=== PATIENT | female | born 1970 | race African-American/Black ===

== ENCOUNTER → 2020-08-01 08:57 | Outpatient (BNVA) | payer SELFPAY | PROVIDERS: PCP Nurse Practitioner Community Health; Visit Provider Nurse Practitioner ==

== ENCOUNTER 2020-08-22 13:50 | Outpatient (REF) | payer OTHER, SELFPAY ==
[2020-08-22 14:18] LABS: MANUAL DIFF FLAG NO
[2020-08-22 14:28] LABS: Basophils Percent Auto 0.6 % (0-2); Eosinophils Absolute Auto 0.3 X10*3/uL (0.0-0.4); Eosinophils Percent Auto 5.2 % (0-4); Hematocrit 37.1 % (37-47); Hemoglobin 12.2 g/dl (12.0-16.0); Imm Gran Abs Auto 0.02 X10*3/uL (0.00-0.03); Imm Gran Pct Auto 0.4 % (0.0-0.4); Lymphocytes Absolute Auto 1.6 X10*3/uL (1.2-4.9); Lymphocytes Percent Auto 33.8 % (20-40); Mean Corpuscular HGB Conc 32.9 g/dl (31.0-35.0); Mean Corpuscular Hemoglobin 29.6 pg (27.0-33.0); Mean Platelet Volume 10.1 fL (9.4-12.3); Monocytes Absolute Auto 0.6 X10*3/uL (0.1-1.2); Monocytes Percent Auto 12.4 % (2-11); Neutrophils Absolute Auto 2.3 X10*3/uL (2.0-8.3); Neutrophils Percent Auto 47.6 % (45-73); Platelet Count 298 X10*3/uL (160-400); Red Blood Count 4.12 X10*6/uL (4.20-5.50); Red Cell Distribution Width 13.8 % (11.0-16.0); White Blood Count 4.8 X10*3/uL (4.8-10.8)
[2020-08-22 14:46] LABS: Alanine Aminotransferase 7 U/L (0-31); Albumin Level 4.3 g/dL (3.5-5.0); Alkaline Phosphatase 74 U/L (39-117); Anion Gap 11 (12-20); Aspartate Amino Transferase 19 U/L (5-31); Bilirubin Total 0.4 mg/dL (0.0-1.0); Blood Urea Nitrogen 7 mg/dL (9-16); Calcium 9.2 mg/dL (8.4-10.2); Carbon Dioxide 27 mmol/L (22-29); Chloride 106 mmol/L (96-108); Estimated Glomerular Filt Rate > 60; Glucose Random 97 mg/dL (60-115); Potassium 4.2 mmol/L (3.3-5.1); Sodium 140 mmol/L (135-145); Total Protein 7.2 g/dL (6.5-8.0)
== END 2020-08-22 13:51 | disposition home or self-care (01) ==
LOC: HO.LAB 13:50
PROVIDERS: PCP Nurse Practitioner Community Health; Visit Provider Nurse Practitioner
DX: Z83.71 Family history of colonic polyps (principal)
CPT/HCPCS: 36415; 80053; 85025

== ENCOUNTER → 2020-09-11 09:05 | Outpatient (BNVA) | payer OTHER, SELFPAY | PROVIDERS: PCP Nurse Practitioner Community Health; Visit Provider Advanced Practice Midwife ==

== ENCOUNTER 2020-09-30 10:03 | Outpatient (REF) | payer OTHER, SELFPAY | END 2020-09-30 10:04 | disposition home or self-care (01) | LOC: HO.LAB 10:03 | PROVIDERS: PCP Nurse Practitioner Community Health; Visit Provider Advanced Practice Midwife | DX: N84.1 Polyp of cervix uteri (principal); L68.0 Hirsutism; L70.9 Acne, unspecified | CPT/HCPCS: 57500; 58558; 81025; 88305 ==

== ENCOUNTER 2020-10-20 10:02 | Day surgery (SDC) | payer OTHER, SELFPAY ==
--- NOTE | 2020-10-20 11:00 | MHC.SHP ---
Pre-Procedural Eval Section A Date of Service: 10/20/20 Section B Chief Complaint: fhx of colonic polyps Relevant Family History (Specify if Yes): Yes Relevant Social History: None Present Medications: see Short Stay Collaborative assessment Medical History: Significant History (Anemia Frequent headaches GERD (gastroesophageal reflux disease) History of positive PPD HTN (hypertension) Overactive bladder) History of Previous Operations: Relevant previous surgery/procedure and date(s) (Hx of colonoscopy) Allergies: Allergies Allergy/AdvReac Type Severity Reaction Status Date / Time Sulfa (Sulfonamide Allergy Unknown RASH, hives Verified 10/14/20 10:18 Antibiotics) [SULFA (SULFONAMIDE ANTIBIOTICS)] Review of Systems Sugical H&P ROS: Negative: Constitution, Cardiovascular, Respiratory, Neurological, Psychiatric, Hem-Onc, Allergic/Immunologic, Gastrointestinal, Genitourinary, Musculoskeletal, Integumentary, Endocrine and Eyes/Ears/Nose/Throat Exam Surgical H&P Exam: Normal: HEENT, Normal: Heart, Normal: Lungs, Normal: Extremities, Normal: Abdomen, Normal: Skin and Normal: Neurological Plan Diagnosis/Plan: Unchanged I have reviewed the history and physical and performed a pertinent physical examination on my patient. No changes have occurred unless specified.
[2020-10-20 11:07] LABS: UPreg QC Valid YES; Urine Pregnancy NEGATIVE (NEGATIVE)
--- NOTE | 2020-10-20 11:07 | P.CONAN_ITS ---
REPLACED BY [facility] Active Problems Active Problems: All Active Problems (Updated 10/14/20 @ 10:34 by Nayana oakes) GERD (gastroesophageal reflux disease) (Acute) Constipation (Acute) Abdominal bloating (Acute) Family history of polyps in the colon (Acute) Solitary rectal ulcer (Acute) Encounter for annual routine gynecological examination (Acute) Cervical polyp (Acute) Hirsutism (Acute) Acne (Acute) Past Medical History Medical History Anemia Frequent headaches GERD (gastroesophageal reflux disease) History of positive PPD HTN (hypertension) Overactive bladder Family History Family History Family/Other No significant family history Surgical History Surgical History Hx of colonoscopy Social History Social History Alcohol intake: current Alcohol intake frequency: holidays/special occasions only Advance Directives: No Advance Directives Information Provided: Yes Gender identity: female Meds Allergies Allergy/AdvReac Type Severity Reaction Status Date / Time Sulfa (Sulfonamide Allergy Unknown RASH, hives Verified 10/14/20 10:18 Antibiotics) [SULFA (SULFONAMIDE ANTIBIOTICS)] Home Medications Medication Instructions Recorded Confirmed Last Taken Type amlodipine 2.5 mg tablet 2.5 mg PO DAILY 08/01/20 10/14/20 Unknown History lisinopril 40 mg tablet 40 mg PO DAILY 08/01/20 09/11/20 Unknown History oxybutynin chloride 5 mg tablet 5 mg PO BID 08/01/20 10/14/20 Unknown History propranolol 160 mg capsule,24 160 mg PO DAILY 08/01/20 10/20/20 10/20/20 09:00 History hr,extended release Exam Exam Date and Time: October 20, 2020 1107 Airway Mallampati Class: III TM Dist: >3cm Neck ROM: Full
[2020-10-20 11:08] VITALS: BP 150/86; PULSE 82; RESP 16; TEMP 36.3; O2SAT 99; BMI 35.9
[2020-10-20] MEDS: Lactated Ringers 1,000 ML 100 ML IVCONT (11:16)
--- NOTE | 2020-10-20 12:05 | P.BOP_ITS ---
Brief Operative Note Date of Service: 10/20/20 Pre-op diagnosis: FH of polyps Post-op diagnosis: same Procedure: see op note Surgeon: Henry Edwards MD Anesthesia: MAC Was an [employer] Presser used for this Procedure?: No Estimated blood loss (mL): 0 Condition: stable Disposition: PACU
--- NOTE | 2020-10-20 12:05 | W.PM.OPN ---
Operative Note Operative Note Date of Service: 10/20/20 Narrative: Operative Information Procedure Description: Colonoscopy COLONOSCOPY Instrument: Olympus variable stiffness pediatric scope 190L Colonoscopy Monitoring: Vital signs and clinical assessment, continuous EKG monitoring, Pulse oximetry, Carbon Dioxide monitoring and blood pressure monitoring were done throughout the procedure. Colon withdrawal time was 20 minutes. Procedure: The patient was placed in the left lateral decubitis position and pre-procedure medications were administered. After a digital rectal examination of the ano-rectum, the video colonoscope was inserted into the rectum and advanced through the colon to the cecum/TI. The colonoscope was slowly withdrawn in a retrograde panoramic fashion and the colon mucosa was carefully examined including a retroflexed view of the rectum. Findings and interventions are described below. Procedure Difficulty:moderate, pressure applied to get to cecum Findings: Terminal Ileum-normal Cecum:normal Ascending Colon: normal Transverse Colon -normal Descending Colon:normal Sigmoid Colon: x2 sessile polyps 9-10 mm removed with cold snare, x 2 diminutive polyps 3-5 mm removed with forceps Rectum: Retroflexion with small internal hemorrhoids, grade I. Distal rectum with inflammed mass like area with slough and edema, This was biopsied and felt soft, adjacent to this was a red polypoid area 8-9 mm removed with cold snare. Anorectum - normal Colon preparation: [facility] [place] Bowel Preparation Scale Right colon; 2 Transverse colon: 2 Left colon; 2 (0 = Unprepared colon segment with mucosa not seen due to solid stool that cannot be cleared. 1 = Portion of mucosa of the colon segment seen, but other areas of the colon segment not well seen due to staining, residual stool and/or opaque liquid. 2 = Minor amount of residual staining, small fragments of stool and/or opaque liquid, but mucosa of colon segment seen well. 3 = Entire mucosa of colon segment seen well with no residual staining, small fragments of stool or opaque liquid) Impression and Post Procedure Diagnosis: polyps internal hemorrhoids mass like lesion distal rectum could be due to rectal prolapse (she has hx of solitary rectal ulcer on past colonoscopy) Plan: High fiber diet leaflet Avoid straining at stool, epsom salts and sitz bath, anusol supps or cream prn Repeat Colonoscopy in 3 years if adenomatous polyps, 5 yrs if hyperplastic due to FH of polyps or earlier if clinically indicated Above findings were reviewed with the patient and relevant handouts were provided if indicated.
[2020-10-20 12:11] VITALS: BP 125/70; PULSE 82; RESP 16; TEMP 36.2; O2SAT 98
[2020-10-20 12:34] VITALS: BP 155/91; PULSE 61; RESP 16; TEMP 36.2; O2SAT 100
== END 2020-10-20 12:50 | disposition home or self-care (01) ==
PROVIDERS: Anesthesiology; PCP Nurse Practitioner Community Health; Visit Provider Internal Medicine Gastroenterology
PROC: 0DJD8ZZ Inspection of Lower Intestinal Tract, Via Natural or Artificial Opening Endoscopic (ICD-10-PCS; CPT 45378; principal; 2020-10-20 11:40)
DX: Z12.11 Encounter for screening for malignant neoplasm of colon (principal); Z83.71 Family history of colonic polyps; K63.5 Polyp of colon; K62.1 Rectal polyp; K62.6 Ulcer of anus and rectum; K64.0 First degree hemorrhoids; K21.9 Gastro-esophageal reflux disease without esophagitis; I10 Essential (primary) hypertension; N32.81 Overactive bladder; D64.9 Anemia, unspecified; L68.0 Hirsutism; Z79.899 Other long term (current) drug therapy; Z88.2 Allergy status to sulfonamides; Z86.11 Personal history of tuberculosis
CPT/HCPCS: 45385; 45380; 81025; 88305

== ENCOUNTER → 2020-11-10 09:02 | Outpatient (BNVA) | payer OTHER, SELFPAY | PROVIDERS: PCP Nurse Practitioner Community Health; Referring Provider Nurse Practitioner Community Health; Visit Provider Nurse Practitioner | DX: K59.00 Constipation, unspecified (principal); K62.6 Ulcer of anus and rectum; K21.9 Gastro-esophageal reflux disease without esophagitis; R14.0 Abdominal distension (gaseous); Z83.71 Family history of colonic polyps | CPT/HCPCS: 99212 ==

== ENCOUNTER 2020-11-11 13:06 | Outpatient (REF) | payer OTHER, SELFPAY ==
--- NOTE | ~2020-11-11 | MM_ITS ---
EXAMINATION: MM SCREENING DIGITAL BREAST TOMOSYNTHESIS, BILATERAL CLINICAL INFORMATION: Screening. Asymptomatic. The lifetime risk of breast cancer based on the Tyrer-Cuzick Model is 11%. COMPARISON: Mammography: 10/19/2018, 05/12/2017, 10/31/2014 TECHNIQUE: Digital breast tomosynthesis is performed in both the craniocaudal and mediolateral oblique views along with computer-aided detection (CAD). Synthesized 2D images are generated from the tomosynthesis. FINDINGS: There are scattered areas of fibroglandular density (ACR BI-RADS breast composition Category b). There are no significant masses, abnormal calcifications, or other abnormalities. Parenchymal pattern is similar to prior exams. No developing density. The axilla and skin contours are unremarkable. MM/MM tomosynthesis screening BI IMPRESSION: No mammographic evidence of malignancy. ASSESSMENT: BI-RADS 1: Negative RECOMMENDATION: Routine annual mammography screening. This patient's information was entered into a reminder system with a target due date for their next mammogram.
== END 2020-11-11 13:07 | disposition home or self-care (01) ==
LOC: HO.MAMMO 13:06
PROVIDERS: Visit Provider Advanced Practice Midwife
DX: Z12.31 Encounter for screening mammogram for malignant neoplasm of breast (principal)
CPT/HCPCS: 77063; 77067

== ENCOUNTER → 2021-03-10 08:53 | Outpatient (BNVA) | payer OTHER, SELFPAY | PROVIDERS: PCP Nurse Practitioner Community Health; Visit Provider Nurse Practitioner ==

== ENCOUNTER → 2021-09-28 08:07 | Outpatient (BNVA) | payer OTHER, SELFPAY | PROVIDERS: PCP Nurse Practitioner Community Health; Visit Provider Advanced Practice Midwife | DX: Z13.89 Encounter for screening for other disorder (principal) ==

== ENCOUNTER 2021-12-24 14:33 | Outpatient (REF) | payer OTHER, SELFPAY ==
--- NOTE | ~2021-12-24 | MM_ITS ---
EXAMINATION: MM SCREENING DIGITAL BREAST TOMOSYNTHESIS, BILATERAL CLINICAL INFORMATION: Screening. Asymptomatic. The lifetime risk of breast cancer based on the Tyrer-Cuzick Model is 11%. COMPARISON: Mammography: 11/11/2020, 10/19/2018, 05/12/2017 TECHNIQUE: Digital breast tomosynthesis is performed in both the craniocaudal and mediolateral oblique views along with computer-aided detection (CAD). Synthesized 2D images are generated from the tomosynthesis. FINDINGS: There are scattered areas of fibroglandular density (ACR BI-RADS breast composition Category b). There are no significant masses, abnormal calcifications, or other abnormalities. Parenchymal pattern is similar to prior exams and there is no developing density or architectural abnormality. The axilla are unremarkable. The skin contours are smooth. MM/MM tomosynthesis screening BI IMPRESSION: No mammographic evidence of malignancy. ASSESSMENT: BI-RADS 1: Negative RECOMMENDATION: Routine annual mammography screening. This patient's information was entered into a reminder system with a target due date for their next mammogram.
== END 2021-12-24 14:34 | disposition home or self-care (01) ==
LOC: HO.MAMMO 14:33
PROVIDERS: Visit Provider Advanced Practice Midwife
DX: Z12.31 Encounter for screening mammogram for malignant neoplasm of breast (principal)
CPT/HCPCS: 77063; 77067

== ENCOUNTER → 2022-12-30 09:15 | Outpatient (BNV) | payer MEDICAID, SELFPAY | PROVIDERS: PCP Nurse Practitioner Community Health; Visit Provider Radiology Diagnostic Radiology | DX: Z12.31 Encounter for screening mammogram for malignant neoplasm of breast (principal) | CPT/HCPCS: 77063; 77067 ==

== ENCOUNTER 2022-12-30 09:18 | Outpatient (REF) | payer MEDICAID, SELFPAY ==
--- NOTE | ~2022-12-30 | MM_ITS ---
EXAMINATION: MM SCREENING DIGITAL BREAST TOMOSYNTHESIS, BILATERAL CLINICAL INFORMATION: Screening. Asymptomatic. COMPARISON: Mammography: 12/24/2021, 11/11/2020, 10/19/2018, 05/12/2017 TECHNIQUE: Digital breast tomosynthesis is performed in both the craniocaudal and mediolateral oblique views along with computer-aided detection (CAD). Synthesized 2D images are generated from the tomosynthesis. FINDINGS: There are scattered areas of fibroglandular density (ACR BI-RADS breast composition Category b). There are no suspicious masses, suspicious grouped calcifications, or areas of architectural distortion. The parenchymal pattern is stable from prior exams. No skin changes. MM/MM tomosynthesis screening BI IMPRESSION: No mammographic evidence of malignancy. ASSESSMENT: BI-RADS BI-RADS 1 - Negative RECOMMENDATION: Routine annual mammography screening. 1 year F/U This examination should not preclude the clinical evaluation of a suspicious palpable abnormality. This patient's information was entered into a reminder system with a target due date for their next mammogram.
== END 2022-12-30 09:19 | disposition home or self-care (01) ==
LOC: HO.MAMMO 09:18
PROVIDERS: PCP Nurse Practitioner Community Health; Visit Provider Nurse Practitioner Community Health
DX: Z12.31 Encounter for screening mammogram for malignant neoplasm of breast (principal)
CPT/HCPCS: 77063; 77067

== ENCOUNTER 2023-01-25 13:59 | Outpatient (REF) | payer MEDICAID, SELFPAY ==
[2023-01-27 02:19] LABS: Follicle Stimulating Hormone 7.3 mIU/mL
== END 2023-01-25 14:00 | disposition home or self-care (01) ==
LOC: HO.LAB 13:59
PROVIDERS: PCP Nurse Practitioner Community Health; Visit Provider Advanced Practice Midwife
DX: N95.1 Menopausal and female climacteric states (principal)
CPT/HCPCS: 36415; 83001

== ENCOUNTER 2023-02-18 08:25 | Outpatient (AMB) | payer MEDICAID, SELFPAY ==
--- NOTE | 2023-02-18 08:25 | A.OFFVIS_ITS ---
Intake Vital Signs 02/18/23 08:30 Height 5 ft 1 in Weight 193 lb BMI 36.5 BP 132/78 Intake Visit Reasons: Annual Intake Note: no concerns The patient agreed to use of a medical genetics director during this encounter. Scribed for PARVEZ Whittington by Rosana Cobb medical genetics director, on 02/17/2023 at 8:45 am EST Director Network Development Required: No Information Interpreted: non-clinical & clinical Administrative Support Specialist: Administrative Support Specialist Present (Brittney PARKER) Accompanied by: Self / Same As Patient Allergies Sulfa (Sulfonamide Antibiotics) [SULFA (SULFONAMIDE ANTIBIOTICS)] Allergy (Unknown, Verified 02/18/23 08:31) RASH, hives Is last menstrual period known: Yes HPI HPI Comments History of Present Illness Details She is a premenopausal woman presenting for annual exam. Doing well with no five piece expansion maker hand concerns. She attempts to eat healthy and stays active with exercise. Currently sexually active. Reports monthly periods. Uses POP for BC and cycle control. Denies vaginal itching and irritation. Denies family hx of breast, colon and ovarian cancer. offered STD testing; she declines. Last pap smear 2017. Last mammogram 12/30/22. UTD on colonoscopy. Patient denies any contraindications to control such as tobacco use, migra jo ann with aura, high blood pressure, liver disease, blood clotting disorders, DVT and PE. 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 Sexual orientation: Straight/Heterosexual Gender identity: Female Female Reproductive History Menstrual Age of Menarche: 13 control method: pills Total pregnancies: 0 Date of last pap smear: 04/26/17 Date of Mammogram: 12/30/22 Review of Systems Const All systems reviewed & are unremarkable except as noted in HPI and below Physical Exam Vital Signs: Last Vital Signs BP 132/78 02/18/23 08:30 BMI result Body Mass Index 36.5 Const General: cooperative, healthy appearing, no acute distress, well developed and alert Orientation/consciousness: patient oriented x3 HEENT Head: Yes normal to inspection Eyes General: appearance normal, both eyes and all related structures Neck Neck: Yes normal visual inspection Thyroid: Thyroid normal Chest Chest palpation & inspection: normal inspection of the chest Breast/axilla inspection: normal inspection of the breasts (no puckering, dimpling, peau de orange, retraction, discharge, masses) Breast/axilla palpation: normal palpation of the breasts Resp Effort & Inspection: normal respiratory effort GI Inspection: Yes normal to inspection and Yes obesity Palpation (GI): Soft to palpation Rectal Exam - Female: deferred General: Yes bladder normal to palpation External Female Exam: normal external appearance and normal appearance of the urethra Speculum Exam - Vagina: normal appearance of the vagina, normal palpation and normal vaginal discharge Speculum Exam - Cervix: normal appearance of the cervix and normal palpation Bimanual exam- vagina & uterus: normal bimanual exam, normal palpation, uterine size normal, bladder normal to palpation and normal palpation Bimanual Exam- Adnexa, other: normal adnexae and no masses Skin General skin exam: no rashes or lesions noted Neuro General: patient oriented x3 Cognition (Neuro): normal cognition Extrem General: Yes normal to inspection Psych Attitude: cooperative Thought process: Normal thought process present Results Reviewed Results Reviewed: Laboratory Tests 01/25/23 14:09 FSH 7.3 Assessment & Plan Assessment & Plan (1) Encounter for annual routine gynecological examination: Code(s): Z01.419 - Encounter for gynecological examination (general) (routine) without abnormal findings Plan: Discussed: Current recommendations for pap smears per ASCCP guidelines. Breast awareness and periodic self breast exams. Encouraged yearly mammograms. Maintaining a healthy lifestyle including a well balanced diet including Calcium and Vitamin D and routine exercise. All of her questions and concerns were addressed to the best of my ability. RTO in one year for AG. (2) Surveillance of contraceptive pill: Code(s): Z30.41 - Encounter for surveillance of contraceptive pills Plan: Continue POP given her FSH results. Will repeat FSH next year. Reviewed use, side effects and warning of OCP, including ACHES. She was instructed to go to ER if she develops loss of vision, severe headache that does not resolve, chest pain, difficulty breathing, abdominal pain, or severe pain or tenderness in extremity. She will call the office with any ezequiel rns. Discussed with use of estrogen and progesterone with undiagnosed breast cancer. Some breast cancer can have positive receptors for hormones that can cause to it grow aggressively and can lead to metastatic disease and possibly be life threatening.? Orders: Orders Pap Smear Today Z01.419 - Encounter for gynecological examination (general) (routine) without abnormal findings Medications: Refilled norethindrone (contraceptive) 0.35 mg PO DAILY 84 tabs 4RF Coding Level of Care Code Est Pt Prev Care 40-64y(83144) Diagnoses Encounter for annual routine gynecological examination Z01.419 Surveillance of contraceptive pill Z30.41
[2023-02-18 08:30] VITALS: BP 132/78; BMI 36.5
== END 2023-02-18 09:04 | disposition home or self-care (01) ==
LOC: HO.HWS 08:25
PROVIDERS: PCP Nurse Practitioner Community Health; Visit Provider Advanced Practice Midwife
DX: Z01.419 Encounter for gynecological examination (general) (routine) without abnormal findings (principal); Z30.41 Encounter for surveillance of contraceptive pills
CPT/HCPCS: 99396

== ENCOUNTER 2023-02-18 08:25 | Outpatient (REF) | payer MEDICAID, SELFPAY ==
[2023-02-22 18:18] LABS: HPV mRNA E6/E7 rflx Not Detected (Not Detected)
== END 2023-02-18 08:26 | disposition home or self-care (01) ==
LOC: HO.LNP 08:25
PROVIDERS: PCP Nurse Practitioner Community Health; Visit Provider Advanced Practice Midwife
DX: Z01.419 Encounter for gynecological examination (general) (routine) without abnormal findings (principal); Z11.51 Encounter for screening for human papillomavirus (HPV)
CPT/HCPCS: 87624; 88142; 99396

== ENCOUNTER → 2024-01-02 11:00 | Outpatient (BNV) | payer MEDICAID, SELFPAY | PROVIDERS: PCP Nurse Practitioner Community Health; Visit Provider Internal Medicine | DX: Z12.31 Encounter for screening mammogram for malignant neoplasm of breast (principal) | CPT/HCPCS: 77063; 77067 ==

== ENCOUNTER 2024-01-02 11:01 | Outpatient (REF) | payer MEDICAID, SELFPAY ==
--- NOTE | ~2024-01-02 | MM_ITS ---
EXAMINATION: MM SCREENING DIGITAL BREAST TOMOSYNTHESIS, BILATERAL CLINICAL INFORMATION: Screening. Asymptomatic. COMPARISON: Mammography: Comparison is made with available priors TECHNIQUE: Digital breast mammography with tomosynthesis is performed in both the craniocaudal and mediolateral oblique views along with computer-aided detection (CAD). FINDINGS: The breasts are heterogeneously dense, which may obscure small masses (ACR BI-RADS breast composition Category c). There are no significant masses, abnormal calcifications, or other abnormalities. MM/MM tomosynthesis screening BI IMPRESSION: No mammographic evidence of malignancy. ASSESSMENT: BI-RADS BI-RADS 1 - Negative RECOMMENDATION: Routine annual mammography screening. 1 year F/U This examination should not preclude the clinical evaluation of a suspicious palpable abnormality. This patient's information was entered into a reminder system with a target due date for their next mammogram. Electronically signed by: Moraima Mujica DO 01/16/2024 05:53 PM EDT
== END 2024-01-02 11:02 | disposition home or self-care (01) ==
LOC: HO.MAMMO 11:01
PROVIDERS: PCP Nurse Practitioner Community Health; Visit Provider Nurse Practitioner Community Health
DX: Z12.31 Encounter for screening mammogram for malignant neoplasm of breast (principal)
CPT/HCPCS: 77063; 77067

== ENCOUNTER 2024-02-29 08:54 | Outpatient (AMB) | payer MEDICAID, SELFPAY ==
--- NOTE | 2024-02-29 08:58 | A.OFFVIS_ITS ---
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 She is doing well with no concerns. Attempting to eat a healthy diet with calcium and vitamin D and stays active with exercise. Having monthly menses. Currently sexually active. Denies any vaginal dryness or irritation. STI testing offered; she declines. Last pap smear; 2022. Last mammogram; 2023. Colonoscopy is UTD. Denies any family history of breast, ovarian or colon cancer. 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 Sexual orientation: Straight/Heterosexual Gender identity: Female Female Reproductive History Menstrual Age of Menarche: 13 Total pregnancies: 0 Date of last pap smear: 02/17/23 (pap smear negative, hpv negative) Date of Mammogram: 01/02/24 (bi-rad 1) Review of Systems Const All systems reviewed & are unremarkable except as noted in HPI and below Reports as per HPI Eyes Reports no additional complaints ENT Reports no additional complaints Card Reports no additional complaints Resp Reports no additional complaints GI Reports as per HPI and Reports no additional complaints Reports as per HPI Musc Reports no additional complaints Skin/Breast Reports as per HPI Neuro Reports no additional complaints Psych Reports no additional complaints Endo Reports no additional complaints Armaan/Lymph Reports no additional complaints Aller/Immun Reports no additional complaints Physical Exam Const General: cooperative, healthy appearing, no acute distress, well developed and alert Orientation/consciousness: patient oriented x3 HEENT Head: Yes normal to inspection Eyes General: appearance normal, both eyes and all related structures Neck Neck: Yes normal visual inspection Thyroid: Thyroid normal Chest Chest palpation & inspection: normal inspection of the chest and other (no puckering, dimpling, peau de orange, retraction, discharge, masses) Breast/axilla inspection: normal inspection of the breasts Breast/axilla palpation: normal palpation of the breasts Resp Effort & Inspection: normal respiratory effort GI Inspection: Yes normal to inspection Palpation (GI): Soft to palpation Rectal Exam - Female: deferred General: Yes bladder normal to palpation External Female Exam: normal external appearance and normal appearance of the urethra Speculum Exam - Vagina: normal appearance of the vagina, normal palpation and normal vaginal discharge Speculum Exam - Cervix: normal appearance of the cervix and normal palpation Bimanual exam- vagina & uterus: normal bimanual exam, normal palpation, uterine size normal, bladder normal to palpation, normal palpation and non-tender Bimanual Exam- Adnexa, other: no masses Skin General skin exam: no rashes or lesions noted Rashes: no rashes Neuro General: patient oriented x3 Cognition (Neuro): normal cognition Extrem General: Yes normal to inspection Psych Attitude: cooperative Thought process: Normal thought process present Assessment & Plan Assessment & Plan (1) Encounter for annual routine gynecological examination: Code(s): Z01.419 - Encounter for gynecological examination (general) (routine) without abnormal findings Category: Medical Plan Discussed: Current recommendations for pap smears per ASCCP guidelines. Breast awareness, periodic self breast exams and yearly mammogram. Maintain a healthy lifestyle, well balanced diet including Calcium 1,200 mg and Vitamin D 600 IU daily, and routine exercise. Menopause verses perimenopause. Menopause is definitive of 1 year of no menses or 12 months in succession. Report any abnormal uterine bleeding in example prolonged episodes, or short intervals less than 24 days. Monitor menstrual cycles, report any unscheduled bleeding, bleeding episodes <24 days apart or heavy/prolonged menstrual bleeding. Call the office for a follow up for any concerns. Patient verbalizes understanding and agrees to the plan of care. She was given opportunity to ask questions and all questions were answered to the best of my ability. 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 This note is constructed using voice recognition software. While every effort has been made to ensure accuracy, mining helper errors may have been included. Coding Level of Care Code Est Pt Prev Care 40-64y(74188) Diagnoses Encounter for annual routine gynecological examination Z01.419
[2024-02-29 09:09] VITALS: BP 120/74; BMI 38.4
== END 2024-02-29 09:28 | disposition home or self-care (01) ==
LOC: HO.HWS 08:54
PROVIDERS: PCP Nurse Practitioner Community Health; Visit Provider Advanced Practice Midwife
DX: Z01.419 Encounter for gynecological examination (general) (routine) without abnormal findings (principal)
CPT/HCPCS: 99396

== ENCOUNTER → 2024-02-29 08:54 | Outpatient (BNVA) | payer MEDICAID, SELFPAY | PROVIDERS: PCP Nurse Practitioner Community Health; Visit Provider Advanced Practice Midwife | DX: Z01.419 Encounter for gynecological examination (general) (routine) without abnormal findings (principal) | CPT/HCPCS: 99396 ==

== ENCOUNTER 2025-03-07 | Outpatient (REF) | payer MEDICAID, SELFPAY ==
--- OUTSIDE RECORDS SUMMARY | 2025-05-14 18:00 | XMS_ITS | Encounter Summary ---
Author Organization [employer] Address [address] [facility] 7t [place] [address] Care Team Providers Care Dredge Mate Name Role Phone Ruslan Pratt NP Primary Care Provider Encounter Details Date Type Department Care Team (Late st Contact Info) Description 05/14/2025 6:00 PM EST Telemedicine [facility] MEDICAL [address] [place] [address] Ruslan Pratt NP [address] [place] [address] Migraine without status migrainosus, not intractable, unspecified migraine type (Primary Dx); Overactive bladder; Essential (primary) hypertension; Chronic right-sided low back pain with right-sided sciatica Social History Tobacco Use Types Packs/Day Years Used Date Smoking Tobacco: Never Smokeless Tobacco: Never Alcohol Use Standard Drinks/Week Comments Not Currently 0 (1 standard drink = 0.6 oz pur e alcohol) Depression Answer Date Recorded Patient Health Questionnaire-9 Score 07/26/2024 Patient Health Questionnaire-9 Score 19 07/26/2024 [...] PM EDT documented as of this encounter Progress Notes * Ruslan Pratt, RADHA - 05/14/2025 6:00 PM EST 05/14/25 Renetta Corado Naomie [id number] HPI: Renetta Akbar is a 54 y.o. female Televisit Hx of migraines with aura Rxed POP and propranolol; unable to increase beta zeenat due to HR. Failed tx with Zomig, Rxed Fioricet Increased amitriptyline last visit. Not much improvement, still with throbbing headaches. Lasts all day. Taking Fioricet without much help. Sometimes has aura with visual change in left eye. Nausea but no vomiting. OAB. Was Rxed oxybutynin which was stopped when started on amitriptyline. She has mild urgency. HTN. Rxed lisinopril, amlodipine and propranolol (for migraine prophylaxis). Elevated last visit, asked to monitor at home Chronic pain in most joints, sometimes more severe low back pain with radiation to right LE. This has gone on for years, never disabling. No imaging done Encouraged exercise and stretching last visit, no doing much. Additional Unclear if postmenopausal . She is on 90 cycle of POP., but has not had w/d bleed recently. Was planning to stop POP. Magan derm on scalp. Rxed topical ketoconzole shampoo prn Anxiety, Rxed Clonidine prn. Referred to [facility] Social Mother with cancer, Appied for SSD due to anxiety/depression RHM: 2020 colonoscopy with polyectomy at [facility], Mammo 12/2022 negative Patient Active Problem List Diagnosis Date Noted Seborrheic dermatitis 04/22/2022 Overactive bladder 04/22/2022 Obesity (BMI 30-39.9) 04/22/2022 Migraines 04/22/2022 Leukopenia 12/30/2011 Hypertension 12/30/2011 Essential (primary) hypertension 05/14/2025 Grief 07/26/2024 Anxiety 07/26/2024 Social anxiety disorder 04/22/2022 Rectal prolapse 04/22/2022 Obstructive sleep apnea 04/22/2022 Lumbago with sciatica, unspecified side 04/22/2022 Hidradenitis suppurativa 12/30/2011 Constipation 12/30/2011 Acanthosis nigricans 12/30/2011 Presbyopia 04/22/2022 Dry eye 04/22/2022 Medical History[1] Surgical History[2] Medications Ordered Prior to Encounter[3] Allergies[4] Social History[5] Social History Social History Narrative Not on file Review of Symptoms: Review of Systems Musculoskeletal: Positive for arthralgias and back pain. Neurological: Positive for headaches. Physical Exam: There were no vitals taken for this visit. Physical Exam Constitutional: Comments: Patient sounds well, no cough or wheezing, speaking in complete sentences. Psychiatric: Mood and Affect: Mood normal. Speech: Speech normal. Behavior: Behavior normal. Behavior is cooperative. Thought Content: Thought content normal. Cognition and Memory: Cognition normal. Judgment: Judgment normal. ASSESSMENT AND PLAN 1. Migraine without status migrainosus, not intractable, unspecified migraine type (Primary) Pt has not done well with propranolol (limited by HR) or amitriptyline (ineffective). Will try topiramate as below, review next visit and check labs subsequent to that. Advised of potential side effects, advised to call promptly if any rash due to risk of Rosa-Vinod. Will titrate as needed, consider neurology consult if ineffective. Will continue on Fioricet prn for abortive treatment - Topiramate ER 25 MG capsule sustained-release 24 hr; Take one tablet (25 mg) once daily x 1 week,then increase to 2 tablets (50 mg) once daily Dispense: 180 capsule; Refill: 0 2. Overactive bladder Stop amitriptyline, restart oxybutynin once daily. - oxybutynin (Ditropan) 5 MG tablet; Take 1 tablet (5 mg) by mouth Once per day. Dispense: 90 tablet; Refill: 2 3. Essential (primary) hypertension Recheck in clinic next visit 4. Chronic right-sided low back pain with right-sided sciatica Pt advised to increase walking and stretching as she is sedentary. Evaluate next visit and considerimaging, as this is an on-going issue. Follow up in about 4 weeks (around 06/11/2025) for OV30 (back pain, migraines OAB, HTN). Ruslan Pratt, MSN, MSP, ANP [address], [place] [address] [1] Past Medical History: Diagnosis Date TB (tuberculosis) 01/17/1995 Positive TB test [2] Past Surgical History: Procedure Laterality Date CERVICAL POLYPECTOMY N/A 12/24/2020 EYE SURGERY Left Stitches in left eye as a child. [3] Current Outpatient Medications on File Prior to Visit Medication Sig Dispense Refill Acetaminophen Extra Strength 500 MG tablet TAKE 1 TABLET BY MOUTH EVERY 4 TO 6 HOURS NEEDED. [id number]/DAY amLODIPine (Norvasc) 2.5 MG tablet Take 1 tablet (2.5 mg) by mouth Once per day. 90 tablet 3 cetirizine (ZyrTEC) 10 MG tablet TAKE 1 TABLET BY MOUTH EVERY DAY 90 tablet 1 cholecalciferol (Vitamin D-3) 50 MCG (2000 UT) tablet Take 2,000 Units by mouth Once per day. 90 tablet 3 cloNIDine (Catapres) 0.1 MG tablet TAKE 1 TABLET BY MOUTH EVERY DAY IN THE MORNING 30 tablet 0 clotrimazole (Lotrimin) 1 % cream Apply topically 2 times daily. 30 g 1 GaviLAX 17 GM/SCOOP powder TAKE 17 GRAMS BY MOUTH ONCE PER DAY. (Patient not taking: Reported on 04/09/2025) 510 g 3 Cortney 0.35 MG tablet TAKE 1 TABLET BY MOUTH EVERY DAY IN THE MORNING 84 tablet 3 lisinopril 40 MG tablet Take 1 tablet (40 mg) by mouth Once per day. 90 tablet 3 Multiple Vitamins-Minerals (Multi Complete) capsule Take 1 tablet by mouth 1 (one) time each day. propranolol LA (Inderal LA) 160 MG 24 hr capsule Take 1 capsule (160 mg) by mouth Once per day. Do not crush, chew, or split. 90 capsule 3 Restasis 0.05 % ophthalmic emulsion administer 1 drop into both eyes 2 times daily. SM Fiber Laxative 500 MG tablet Take 2 tablets by mouth Once per day. 180 tablet 3 [DISCONTINUED] amitriptyline (Elavil) 50 MG tablet Take 1 tablet (50 mg) by mouth at bedtime. 90 tablet 0 [DISCONTINUED] oxybutynin (Ditropan) 5 MG tablet Take 1 tablet (5 mg) by mouth 2 times daily. 180 tablet 1 No current facility-administered medications on file prior to visit. [4] Allergies Allergen Reactions Sulfa Antibiotics Hives [5] Social History Tobacco Use Smoking status: Never Smokeless tobacco: Never Substance Use Topics Alcohol use: Not Currently Drug use: Never documented in this encounter Plan of Treatment Upcoming Encounters Date Type Department Care Team (Late st Contact Info) Description 10/07/2025 9:20 AM EDT Office Visit [facility] Dental [address] [place] [address] Kayla Howe documented as of this encounter Visit Diagnoses Diagnosis Migraine without status migrainosus, not intractable, unspecified migraine type- Primary Overactive bladder Hypertonicity of bladder Essential (primary) hypertension Unspecified essential hypertension Chronic right-sided low back pain with right-sided sciatica documented in this encounter Additional Health Concerns Assessment Noted Time PHQ-9 Depression Total Score: 19 07/26/ 025 8:52 AM EDT documented as of this encounter Care Teams Dredge Mate Relationship Specialty Start Date End Date Ruslan Pratt NP [address] [place] [address] PCP - General Internal Medicine 03/25/22 documented as of this encounter
--- OUTSIDE RECORDS SUMMARY | 2025-05-16 07:54 | XMS_ITS | Encounter Summary ---
Author Organization [employer] Address 75 [facility] 7t [place] [address] Care Team Providers Care Crosscutter Name Role Phone Ruslan Pratt NP Primary Care Provider Encounter Details Date Type Department Care Team (Late st Contact Info) Description 11/16/2023 Orders Only [facility] [address] [place] [address] Ruslan Pratt NP [address] [place] [address] Social History Tobacco Use Types Packs/Day Years [...] 10/07/2025 9:20 AM EDT Office Visit [facility] Dental [address] [place] [address] Kayla Howe documented as of this encounter Procedures Procedure [...] documented as of this encounter Care Teams Crosscutter Relationship Specialty Start Date End Date Ruslan Pratt NP [address] [place] [address] PCP - General Internal Medicine 03/25/22 documented as of this encounter
--- OUTSIDE RECORDS SUMMARY | 2025-05-16 07:54 | XMS_ITS | Clinical Summary ---
Author Organization [employer] Address [address] [facility] 7t [place] [address] Care Team Providers Care Neurological Physiotherapist Name Role Phone Ruslan Pratt NP Primary Care Provider Allergies Active Allergy Reactions Criticality Noted Date Comments Sulfa Antibiotics Hives 04/22/2022 Medications * This document contains information received from the source organization and may not represent a complete record from that organization. Multiple Vitamins-Minera ls (Multi Complete) capsule Take 1 tablet by mouth 1 (one) time each day. Active SM Fiber Laxative 500 MG tabletIndicatio ns:Constipation , unspecified constipation type Take 2 tablets by mouth Once per day. 180 tablet 05/22/19 25 Active amLODIPine (Norvasc) 2.5 MG tabletIndicatio ns:Essential (primary) hypertension Take 1 tablet (2.5 mg) by mouth Once per day. 90 tablet 05/22/19 25 Active cholecalciferol (Vitamin D-3) 50 MCG (2000 UT) tablet Take 2,000 Units by mouth Once per day. 90 tablet 05/22/19 25 Active lisinopril 40 MG tabletIndicatio ns:Essential (primary) hypertension Take 1 tablet (40 mg) by mouth Once per day. 90 tablet 05/22/19 25 Active propranolol LA (Inderal LA) 160 MG 24 hr capsuleIndicati ons:Social anxiety disorder Take 1 capsule (160 mg) by mouth Once per day. Do not crush, chew, or split. 90 capsule 05/22/19 25 Active Cortney 0.35 MG tabletIndicatio ns:Family planning TAKE 1 TABLET BY MOUTH EVERY DAY IN THE MORNING 84 tablet 06/14/19 25 Active GaviLAX 17 GM/SCOOP powderIndicatio ns:Constipation , unspecified constipation type TAKE 17 GRAMS BY MOUTH ONCE PER DAY. 510 g 3 09/19/19 25 Active Additional Information Patient not taking.Reported on 04/09/2025 cetirizine (ZyrTEC) 10 MG tabletIndicatio ns:Non-seasonal allergic rhinitis, unspecified trigger TAKE 1 TABLET BY MOUTH EVERY DAY 90 tablet 1 11/20/19 25 Active clotrimazole (Lotrimin) 1 % creamIndication s:Tinea pedis of right foot Apply topically 2 times daily. 30 g 1 01/02/20 25 Active Acetaminophen Extra Strength 500 MG tablet TAKE 1 TABLET BY MOUTH EVERY 4 TO 6 HOURS NEEDED. MAX 4000MG/DAY 12/04/19 25 Active Restasis 0.05 % ophthalmic emulsion administer 1 drop into both eyes 2 times daily. 11/16/19 25 Active cloNIDine (Catapres) 0.1 MG tabletIndicatio ns:Social anxiety disorder TAKE 1 TABLET BY MOUTH EVERY DAY IN THE MORNING 30 tablet 02/19/20 25 Active oxybutynin (Ditropan) 5 MG tabletIndicatio ns:Overactive bladder Take 1 tablet (5 mg) by mouth Once per day. 90 tablet 2 05/14/19 26 Active Topiramate ER 25 MG capsule sustained-relea se 24 hrIndications:M igraine without status migrainosus, not intractable, unspecified migraine type Take one tablet (25 mg) once daily x 1 week, then increase to 2 tablets (50 mg) once daily 180 capsule 05/14/19 26 Active amitriptyline (Elavil) 50 MG tabletIndicatio ns:Migraine without status migrainosus, not intractable, unspecified migraine type Take 1 tablet (50 mg) by mouth at bedtime. 90 tablet 04/09/20 25 2025 Discontinued oxybutynin (Ditropan) 5 MG tabletIndicatio ns:Overactive bladder Take 1 tablet (5 mg) by mouth 2 times daily. 180 tablet 1 04/09/20 25 2025 Discontinued(R eorder (will not trigger notification to Pharmacy)) Active Problems Problem Noted Date Diagnosed Date Essential (primary) hypertension 05/14/2025 Grief 07/26/2024 Anxiety [...] Encounters Date Type Department Care Team Description 05/14/2025 6:00 PM EST Telemedicine [address] [address] Ruslan Pratt NP Migraine without status migrainosus, not intractable, unspecified migraine type (Primary Dx); Overactive bladder; Essential (primary) hypertension; Chronic right-sided low back pain with right-sided sciatica 04/09/2025 9:30 AM EST Office Visit [facility][1] MEDICAL [address] [place] [address] Ruslan Pratt NP Essential (primary) hypertension (Primary Dx); Migraine without status migrainosus, not intractable, unspecified migraine type; Overactive bladder; Arthralgia, unspecified joint 04/01/2025 9:30 AM EST Office Visit [facility][1] Dental [address] [place] [address] Kayla Howe Encounter for dental examination (Primary Dx); Periodontal disease 04/01/2025 9:00 AM EST Office Visit [facility][1] Dental [address] [place] [address] Le Lynn LLD 03/12/2025 Telephone [facility] MEDICAL [address] [place] [address] Ruslan Pratt NP 02/16/[address] [place] [address] Ruslan Pratt NP Social anxiety disorder from Last 3 Months [...] Sign Reading Time Taken Comments Blood Pressure 158/100 04/09/2025 9:38 AM EST Pulse 66 04/09/2025 9:36 AM EST Temperature 37 C (98.6 F) 04/09/2025 9:36 AM EST Respiratory Rate 16 11/15/2023 9:06 AM EDT Oxygen Saturation 98% 01/01/2025 10:19 AM EDT Inhaled Oxygen Concentration - - Weight 82.6 kg (182 lb) 04/09/2025 9:36 AM EST Height 154.9 cm (5' 1 ) 04/09/2025 9:36 AM EST Body Mass Index 34.39 04/09/2025 9:36 AM EST Plan of Treatment Upcoming Encounters Date Type Department Care Team (Late st Contact Info) Description 10/07/2025 9:20 AM EDT Office Visit [facility] Dental [address] [place] [address] Kayla Howe Health Maintenance Due Date Last Done Comments CT Colonography 1971 FIT DNA/Cologuard 1971 FIT 1971 FOBT 1970 HIV Screening 1970 Sigmoidoscopy 1970 Disability Screening 1971 Hepatitis C Screening 10/05/1989 Hepatitis B Vaccines (3 of 3 - 19+ 3-dose series) 03/11/2006 01/14/2006, 04/29/2005 Pneumococcal Vaccine: 50+ Years (1 of 1 - PCV) 10/05/2021 Zoster Vaccines (1 of 2) 10/05/2021 SDOH Screening 11/14/2024 11/15/2023 COVID-19 Vaccine ( - season) 2024 05/22/2024, 02/28/2023, 03/11/2022, Additional history exists Influenza Vaccine (#1) 2024 , 02/28/2023, 03/11/2022, Additional history exists Mammogram 12/30/2024 12/30/2022, 10/24, 11/11/2020 Depression Monitoring 01/25/2025 07/26/2024, 025 Dental X-Ray: Bitewings 09/26/2025 09/26/19, 02/16/2021, 02/09/2019, Additional history exists Dental Oral Exam 10/01/2025 04/01/2025, 12/2024, 09/25/2024, Additional history exists Dental Prophylaxis 10/01/2025 04/01/2025, 0 10/01/2024, 02/16/2021, Additional history exists Cervical Cancer Screening 12/24/2025 HPV/Cotest 12/24/2025 Pap Smear 12/24/2025 12/24/2020, 12/24/2020 Alcohol/Substance Use Screening 04/01/2026 04/01/2025 Tobacco Screening 04/01/2026 04/01/2025 Dental X-Ray: Full Mouth 01/03/2028 025, 12/03/2024, [...] PRESENTATION, DETAILED AND EXTENSIVE TREATMENT PLANNING Routine 04/01/2025 9:30 AM EST ORAL HYGIENE INSTRUCTIONS Routine 04/01/2025 9:30 AM EST Full PROPHYLAXIS - ADULT Routine 04/01/2025 9:30 AM EST PERIODIC ORAL EVALUATION - ESTABLISHED PATIENT Routine 04/01/2025 9:30 AM EST NO CHARGE VISIT Routine 04/01/2025 9:00 AM EST 3 EXTRACTION Routine 04/01/2025 12:00 AM EST AMB REFERRAL TO OB-MANUFACTURING OPERATIONS MANAGER Routine 03/07/2025 Encounter for annual physical examination excluding gynecological examination in a patient older than 17 years PANORAMIC RADIOGRAPHIC IMAGE Routine 01/01/2025 10:00 AM EDT INTRAORAL - COMPLETE SERIES [...] AM EST) Cholesterol, Total 196 (<200) MG/DL [facility] Triglyceride (mg/dL) in Serum/Plasma 71 (<150) MG/DL [facility] HDL Cholesterol 46 (>39) MG/DL [facility] LDL Cholesterol, Calculated 136(H) (0-130) MG/DL [facility] Non HDL Chol. (LDL+VLDL) 150 (<160) MG/DL [facility] Comment: Testing performed or reported by [facility], a Service of [facility], [address] [place] [id number] Phoenix Sommer MD, Outcome Analyst [facility]# [id number] Blood Venous blood specimen / Unknown 05/19/2023 9:27 AM EST 05/19/2023 9:31 AM EST Ruslan Pratt NP LAB BLOOD ORDERABLES Final R esult [facility] [address] [place] [id number] * BI Mammogram Screening Tomosynthesis Bilateral (12/30/2022 10:24 AM EDT) Anatomical Region Laterality Modality Breast Bilateral Mammography Ruslan Pratt NP IMG BI PROCEDURES Final Resu lt * Hm Pap Smear (12/24/2020) HM Pap smear norrmal Historical Provider HEALTH MAINTENANCE Final Result * Hm Colonoscopy (11/19/2020) Colonoscopy normal Historical Provider HEALTH MAINTENANCE Final Result from Last 3 Months or Most Recently Relevant to Health Maintenance Insurance [place] [address] [place] [address] [facility] DENTAL - HSN PARTIAL (MEDICAID) Care Teams Neurological Physiotherapist Relationship Specialty Start Date End Date Ruslan Pratt NP [address] [place] [address] PCP - General Internal Medicine 03/25/22
--- OUTSIDE RECORDS SUMMARY | 2025-05-16 07:54 | XMS_ITS | Encounter Summary ---
Author Organization [employer] [facility] Address [address] [facility] [address] [place] [address] Care Team Providers Care Human Resources Records Clerk Name Role Phone Ruslan Pratt NP Primary Care Provider Encounter Details Date Type Department Care Team (Latest Contact Info) Description 02/16/2021 Abstract [facility] CONVERSIONS Dental, Provider, DDS Social History [...] Encounters Date Type Department Care Team ( Contact Info) Description 10/07/2025 9:20 AM EDT Office Visit [place] [facility] Dental [address] [place] [address] Kayla Howe documented as of this encounter Visit Diagnoses Not on filedocumented in this encounter Care Teams Human Resources Records Clerk Relationship Specialty Start Date End Date Ruslan Pratt NP [address] [place] [address] PCP - General Internal Medicine 03/25/22 documented as of this encounter
--- OUTSIDE RECORDS SUMMARY | 2025-05-16 07:54 | XMS_ITS | Encounter Summary ---
Author Organization [employer] [facility] Address 75 [facility] [address] [place] [address] Care Team Providers Care Stabilizer Operator Name Role Phone Ruslan Pratt NP Primary Care Provider Encounter Details Date Type Department Care Team (Latest Contact Info) Description 08/08/2018 Abstract [facility] CONVERSIONS Dental, Provider, DDS Social History [...] Care Team ( st Contact Info) Description 10/07/2025 9:20 AM EDT Office Visit [place] [facility] Dental [address] [place] [address] Kayla Howe documented as of this encounter Visit Diagnoses Not on filedocumented in this encounter Care Teams Stabilizer Operator Relationship Specialty Start Date End Date Ruslan Pratt NP [address] [place] [address] PCP - General Internal Medicine 03/25/22 documented as of this encounter
--- OUTSIDE RECORDS SUMMARY | 2025-05-16 07:54 | XMS_ITS | Encounter Summary ---
Author Organization [facility] Address 75 [facility] 7t [place] [address] Care Team Providers Care Tree Trimming Line Technician Name Role Phone Ruslan Pratt NP Primary Care Provider [phone] Reason for Visit * Reason Comments Med Refill Encounter Details Date Type Department Care Team ([facility] st Contact Info) Description 06/20/2024 Refill [facility] MEDICAL [address] [place] [address] Ruslan Pratt NP [address] [place] [address] Essential (primary) hypertension; Social anxiety disorder Social [...] 10/07/2025 9:20 AM EDT Office Visit [facility] Dental [address] [place] [address] Kayla Howe documented as of this encounter Visit Diagnoses Diagnosis Essential (primary) hypertension Unspecified essential hypertension Social anxiety disorder Social phobia documented in this encounter Additional Health Concerns Assessment Noted Time PHQ-9 Depression Total Score: 13 024 9:13 AM EDT documented as of this encounter Care Teams Tree Trimming Line Technician Relationship Specialty Start Date End Date Ruslan Pratt NP [address] [place] [address] PCP - General Internal Medicine 03/25/22 documented as of this encounter
--- OUTSIDE RECORDS SUMMARY | 2025-05-16 07:54 | XMS_ITS | Encounter Summary ---
Author Organization [facility] Address [address] [facility] 7t [place] [address] Care Team Providers Care Director Decision Support Name Role Phone Ruslan Pratt NP Primary Care Provider [phone] Reason for Visit * Reason Comments Med Change Request Encounter Details Date Type Department Care Team ([facility] Contact Info) Description 11/15/2023 Refill [facility] MEDICAL [address] [place] [address] Ruslan Pratt NP [address] [place] [address] Constipation, unspecified constipation type Social History Tobacco [...] 10/07/2025 9:20 AM EDT Office Visit [facility] Dental [address] [place] [address] Kayla Howe documented as of this encounter Visit Diagnoses Diagnosis Constipation, unspecified constipation type documented in this encounter Additional Health Concerns Assessment Noted Time PHQ-9 Depression Total Score: 13 024 9:13 AM EDT documented as of this encounter Care Teams Director Decision Support Relationship Specialty Start Date End Date Ruslan Pratt NP [address] [place] [address] PCP - General Internal Medicine 03/25/22 documented as of this encounter
== END 2025-03-07 00:01 ==
LOC: CF
PROVIDERS: PCP Nurse Practitioner Community Health; Visit Provider Advanced Practice Midwife
DX: Z01.419 Encounter for gynecological examination (general) (routine) without abnormal findings (principal); R10.22 Pelvic and perineal pain left side
CPT/HCPCS: 99396

== ENCOUNTER 2025-03-07 09:10 | Outpatient (AMB) | payer MEDICAID, SELFPAY ==
--- NOTE | 2025-03-07 09:12 | A.OFFVIS_ITS ---
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 Intake Note: Here for door attendant annual.Wants to discuss if it is time to get off OCP Information Interpreted: non-clinical & clinical Customer Loyalty Representative: Customer Loyalty Representative Present (Laya) Accompanied by: Self / Same As Patient Allergies Sulfa (Sulfonamide Antibiotics) (SULFA (SULFONAMIDE ANTIBIOTICS)) Allergy (Unknown, Verified 03/07/25 09:15) RASH, hives Medication List - Last Reconciled 03/07/25 by Jacquie West LPN amlodipine 2.5 mg PO DAILY ibuprofen 800 mg PO TID lisinopril 40 mg PO DAILY methylcellulose (laxative) (Citrucel) 1,000 mg (2 x 500 mg) PO DAILY 30 days norethindrone (contraceptive) 0.35 mg PO DAILY oxybutynin chloride 5 mg PO BID polyethylene glycol 3350 17 - 34 grams PO BEDTIME propranolol ER 160 mg PO DAILY Is last menstrual period known: Yes Last menstrual period: 02/06/25 Do you need a note to return to daycare/school/sports/work: No HPI Comments Details: Patient is a 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 Corsage Maker concerns: doing well on POP's, history of HTN. She reports taking pill on time and has monthly bleeding, heavier 4/7 days. Occasional pain on her lower left pelvis. Menarche age 13. Not having hot flashes. Currently sexually active. Denies any vaginal dryness or irritation. STI testing offered; she declined Attempting to eat a healthy diet with calcium and vitamin D and stays active with exercise. Last pap smear; 2022, negative. Last mammogram; 2023. Colonoscopy is UTD. Denies any family history of breast, ovarian or colon cancer. [facility] Medical History (Updated 03/07/25 @ 12:41 by Char Rodriguez CNM) Perimenopausal Overactive bladder Frequent headaches Anemia History of positive PPD HTN (hypertension) GERD (gastroesophageal reflux disease) Surgical History Hx of colonoscopy Family History Family/Other No significant family history Mother No problems noted. 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 Sexual orientation: Straight/Heterosexual Gender identity: Female Female Reproductive History Menstrual Age of Menarche: 13 Date of last menstrual period: 02/06/25 control method: pills Total pregnancies: 0 Number of Living Children: 0 Date of last pap smear: 02/18/23 History of abnormal pap smear: No Date of Mammogram: 01/02/24 History of abnormal mammogram: No Review of Systems Const All systems reviewed & are unremarkable except as noted in HPI and below Reports as per HPI Eyes Reports no additional complaints ENT Reports no additional complaints Card Reports no additional complaints Resp Reports no additional complaints GI Reports as per HPI and Reports no additional complaints Reports as per HPI Musc Reports no additional complaints Skin/Breast Reports as per HPI Neuro Reports no additional complaints Psych Reports no additional complaints Endo Reports no additional complaints Armaan/Lymph Reports no additional complaints Aller/Immun Reports no additional complaints Physical Exam Vital Signs: Last Vital Signs BP 118/76 03/07/25 09:22 BMI result Body Mass Index 34.9 Const General: cooperative, healthy appearing, no acute distress, well developed and alert Orientation/consciousness: patient oriented x3 HEENT Head: Yes normal to inspection Eyes General: appearance normal, both eyes and all related structures Neck Neck: Yes normal visual inspection Thyroid: Thyroid normal Chest Chest palpation & inspection: normal inspection of the chest and other (no puckering, dimpling, peau de orange, retraction, discharge, masses) Breast/axilla inspection: normal inspection of the breasts Breast/axilla palpation: normal palpation of the breasts Resp Effort & Inspection: normal respiratory effort GI Inspection: Yes normal to inspection Palpation (GI): Soft to palpation Rectal Exam - Female: deferred General: Yes bladder normal to palpation External Female Exam: normal external appearance and normal appearance of the urethra Speculum Exam - Vagina: normal appearance of the vagina, normal palpation and normal vaginal discharge Speculum Exam - Cervix: normal appearance of the cervix and normal palpation Bimanual exam- vagina & uterus: normal bimanual exam, normal palpation, uterine size normal, bladder normal to palpation, normal palpation and non-tender Bimanual Exam- Adnexa, other: no masses Skin General skin exam: no rashes or lesions noted Rashes: no rashes Neuro General: patient oriented x3 Cognition (Neuro): normal cognition Extrem General: Yes normal to inspection Psych Attitude: cooperative Thought process: Normal thought process present Assessment & Plan Assessment & Plan (1) Encounter for annual routine gynecological examination: Code(s): Z01.419 - Encounter for gynecological examination (general) (routine) without abnormal findings Category: Medical (2) Pelvic pain: Code(s): R10.2 - Pelvic and perineal pain Category: Medical Plan: Plan pelvic ultrasound and follow up pending results. The patient expressed understanding and agreement with the plan of care. All of her questions and concerns were addressed to the best of my ability. Plan Discussed: Current recommendations for pap smears per ASCCP guidelines. Breast awareness, periodic self breast exams and yearly mammogram. Maintain a healthy lifestyle, well balanced diet including Calcium 1,200 mg and Vitamin D 600 IU daily, and routine exercise. control hormone use warnings: go to ER if and loss of vision, blindness, severe headache, chest pain or difficulty breathing, severe abdominal pain, or any pain or swelling in an extremity. Plan FSH and LH after 1 month of OCP. Follow up pending results. Consider sto pping OCPs and observing for pattern. Menopause verses perimenopause. Menopause is definitive of 1 year of no menses or 12 months in succession. Report any abnormal uterine bleeding in example prolonged episodes, or short intervals less than 24 days. Patient verbalizes understanding and agrees to the plan of care. She was given opportunity to ask questions and all questions were answered to the best of my ability. RTO in 1 year for annual door attendant exam. This note is constructed using voice recognition software. While every effort has been made to ensure accuracy, lead systems analyst errors may have been included. Orders: Orders MM tomosynthesis screening BI Today Z12.31 - Encounter for screening mammogram for malignant neoplasm of breast Follicle Stimulating Hormone Today N95.1 - Menopausal and female climacteric states, R23.2 - Flushing Lutenizing Hormone Today N95.1 - Menopausal and female climacteric states US pelvic and transvaginal Today R10.2 - Pelvic and perineal pain Coding Level of Care Code Est Pt Prev Care 40-64y(63918) Diagnoses Encounter for annual routine gynecological examination Z01.419 Pelvic pain R10.2
[2025-03-07 09:22] VITALS: BP 118/76; BMI 34.9
--- OUTSIDE RECORDS SUMMARY | 2025-03-07 10:08 | XMS_ITS | Clinical Summary ---
Author Organization [employer] Address [address] [facility] 7 [place] [address] Care Team Providers Care Cement Finisher Helper Name Role Phone Ruslan Pratt NP Primary Care Provider Allergies Active Allergy Reactions Criticality Noted Date Comments Sulfa Antibiotics Hives 04/22/2022 Medications * This document contains information received from the source organization and may not represent a complete record from that organization. Multiple Vitamins-Mineral s (Multi Complete) capsule Take 1 tablet by mouth 1 (one) time each day. Active SM Fiber Laxative 500 MG tabletIndication s:Constipation, unspecified constipation type Take 2 tablets by mouth Once per day. 180 tablet 05/22/19 25 Active amLODIPine (Norvasc) 2.5 MG tabletIndication s:Essential (primary) hypertension Take 1 tablet (2.5 mg) by mouth Once per day. 90 tablet 05/22/19 25 Active cholecalciferol (Vitamin D-3) 50 MCG (2000 UT) tablet Take 2,000 Units by mouth Once per day. 90 tablet 05/22/19 25 Active lisinopril 40 MG tabletIndication s:Essential (primary) hypertension Take 1 tablet (40 mg) by mouth Once per day. 90 tablet 05/22/19 25 Active propranolol LA (Inderal LA) 160 MG 24 hr capsuleIndicatio ns:Social anxiety disorder Take 1 capsule (160 mg) by mouth Once per day. Do not crush, chew, or split. 90 capsule 05/22/19 25 Active Cortney 0.35 MG tabletIndication s:Family planning TAKE 1 TABLET BY MOUTH EVERY DAY IN THE MORNING 84 tablet 06/14/19 25 Active GaviLAX 17 GM/SCOOP powderIndication s:Constipation, unspecified constipation type TAKE 17 GRAMS BY MOUTH ONCE PER DAY. 510 g 3 09/19/19 25 Active cetirizine (ZyrTEC) 10 MG tabletIndication s:Non-seasonal allergic rhinitis, unspecified trigger TAKE 1 TABLET BY MOUTH EVERY DAY 90 tablet 1 11/20/19 25 Active oxybutynin (Ditropan) 5 MG tabletIndication s:Overactive bladder TAKE 1 TABLET BY MOUTH TWICE DAILY 180 tablet 1 12/18/19 25 Active clotrimazole (Lotrimin) 1 % creamIndications :Tinea pedis of right foot Apply topically 2 times daily. 30 g 1 01/02/20 25 Active Acetaminophen Extra Strength 500 MG tablet TAKE 1 TABLET BY MOUTH EVERY 4 TO 6 HOURS NEEDED. MAX 4000MG/DAY 12/04/19 25 Active Restasis 0.05 % ophthalmic emulsion administer 1 drop into both eyes 2 times daily. 11/16/19 25 Active amitriptyline (Elavil) 25 MG tabletIndication s:Migraine without status migrainosus, not intractable, unspecified migraine type Take 1 tablet (25 mg) by mouth at bedtime. 90 tablet 01/02/20 25 026 Active cloNIDine (Catapres) 0.1 MG tabletIndication s:Social anxiety disorder TAKE 1 TABLET BY MOUTH EVERY DAY IN THE MORNING 30 tablet 02/19/20 25 Active cloNIDine (Catapres) 0.1 MG tabletIndication s:Social anxiety disorder TAKE 1 TABLET BY MOUTH IN THE MORNING 30 tablet 1 12/11/19 25 025 Discontinued Active Problems Problem Noted Date Diagnosed Date Grief 07/26/2024 Anxiety 07/26/2024 Social anxiety disorder 04/22/2022 Seborrheic dermatitis 04/22/2022 Rectal prolapse 04/22/2022 Presbyopia 04/22/2022 Overactive bladder 04/22/2022 Obstructive sleep apnea 04/22/2022 Obesity (BMI 30-39.9) 04/22/2022 Migraines 04/22/2022 Lumbago with sciatica, unspecified side 04/22/20 Dry eye 04/22/2022 Leukopenia 12/30/2011 Hypertension 12/30/2011 Hidradenitis suppurativa 12/30/2011 Constipation 12/30/2011 Acanthosis nigricans 12/30/2011 Resolved Problems Problem Noted Date Diagnosed Date Resolved Date TB (tuberculosis) 05/04/2022 05/17/2022 Encounters Date Type Department Care Team Description 02/16/[address] [address] Ruslan Pratt NP Social anxiety disorder 01/01/2025 10:30 AM EDT Office Visit [address] [address] Ruslan Pratt NP Essential (primary) hypertension (Primary Dx); Migraine without status migrainosus, not intractable, unspecified migraine type; Overactive bladder; Tinea pedis of right foot; Constipation, unspecified constipation type; Encounter for surveillance of contraceptive pills; Encounter for screening mammogram for malignant neoplasm of breast 01/01/2025 10:00 AM EDT Office Visit [facility] [address] [place] [id number] Le Lynn LLD 12/16/[address] [address] Rosana Sykes MD Overactive bladder 12/10/[address] [address] Rosana Sykes MD Social anxiety disorder from Last 3 Months Immunizations Immunization Administration Dates Next Due Hep B, adult 01/14/2006,04/29/2005 INFLUENZA INJECTABLE QUADRIV ALANT CCIIV4 MDCK Multi-dose vial 05/18/2019 Influenza Injectable Quadriv alant Preservative Free IIV4 MDCK 02/28/2023 Influenza injectable quadriv alent preservative free 03/11/2022 Influenza, IIV3, injectable 03/03/2021,,03/05/2016 Influenza, Injectable, MDCK, w/preservative 05/22/2024 Influenza, Recombinant, inje ctable, preservative free 02/06/2014 Influenza, Split (incl. miguel fied surface antigen) 01/12/2012 MMR 05/18/2019 Moderna Covid-19 Vaccine 12+ 05/22/2024, 02/28/2023,08/08/2020,2020 Tdap 11/15/2023,04/25/2012,12/30/2011 Family History Medical History Relation Name Comments Cataracts Father Cataracts Mother Relation Name Status Comments Father Mother Social History Tobacco Use Types Packs/Day Years Used Date Smoking Tobacco: Never Smokeless Tobacco: Never Tobacco Cessation:Counseling Given: Not Answered Alcohol Use Standard Drinks/Week Comments Not Currently 0 (1 standard drink = 0.6 oz pur e alcohol) Depression Answer Date Recorded Patient Health Questionnaire-9 Score 19 07/26/2024 Patient Health Questionnaire-9 Score 19 07/26/2024 Last PHQ-9: Questionnaire Data Not on file 0 07/26/2024 Housing Stability Answer Date Recorded What is your housing situation today? I have yanni lacey 11/15/[address] you li ve. Do you have problems with any of the following? I am not sure 11/15/2023 Food Insecurity Answer Date Recorded Within the past 12 months, y ou worried that your food would run out before you got money to buy more: Never True 11/15/2023 Within the past 12 months,th e food you bought just didn't last and you didn't have enough money to get more: Never True Transportation Answer Date Recorded In the past 12 months, has l ack of transportation kept you from medical appts, meetings, work or from getting things needed for daily living? No 11/15/2023 Utilities Answer Date Recorded In the past 12 months, has t he electric, gas, oil or water company threatened to shut off services in your home? Yes 11/15/2023 Depression Answer Date Recorded Patient Health Questionnaire-2 Score 4 07/26/2024 Internet Access Answer Date Recorded Internet Access Q1 Yes 12/26/2023 Internet Access Q2 Not on file 12/26/2023 Comments No Sex and Gender Information Value Date Recorded Sex Assigned at Female 02/22/2022 10:18 AM EDT Legal Sex Female 10:18 AM EDT Gender Identity Female 02/22/2022 10:18 AM EDT Sexual Orientation Straight 11/04/2022 9: 26 PM EDT Last Filed Vital Signs Vital Sign Reading Time Taken Comments Blood Pressure 148/90 01/01/2025 11:14 AM EDT Pulse 55 01/01/2025 10:19 AM EDT Temperature 37.1 C (98.7 F) 01/01/2025 10:19 AM EDT Respiratory Rate 16 11/15/2023 9:06 AM EDT Oxygen Saturation 98% 01/01/2025 10:19 AM EDT Inhaled Oxygen Concentration - - Weight 82.6 kg (182 lb) 01/01/2025 10:19 AM EDT Height 154.9 cm (5' 1 ) 05/22/2024 9:32 AM EST Body Mass Index 34.39 05/22/2024 9:32 AM EST Plan of Treatment Upcoming Encounters Date Type Department Care Team (Late st Contact Info) Description 04/01/2025 9:30 AM EST Office Visit [facility] [address] [place] [address] Kayla Howe 04/09/2025 9:30 AM EST Office Visit [facility] MED[facility] [address] [place] [address] Ruslan Pratt NP [address] [place] [address] Health Maintenance Due Date Last Done Comments CT Colonography 1971 FIT DNA/Cologuard 1971 FIT 1971 FOBT 1971 HIV Screening 1971 Sigmoidoscopy 1971 Disability Screening 1971 Alcohol/Substance Use Screening 1983 Hepatitis C Screening 10/05/1989 Hepatitis B Vaccines (3 of 3 - 19+ 3-dose series) 03/11/2006 01/14/2006, 04/29/2005 Pneumococcal Vaccine: 50+ Years (1 of 1 - PCV) 10/05/2021 Zoster Vaccines (1 of 2) 10/05/2021 SDOH Screening 11/14/2024 11/15/2023 COVID-19 Vaccine ( season) 2024 05/22/2024, 02/28/2023, 03/11/2022, Additional history exists Influenza Vaccine (#1) 2024 , 02/28/2023, 03/11/2022, Additional history exists Mammogram 12/30/2024 12/30/2022, 10/24, 11/11/2020 Depression Monitoring 01/25/2025 07/26/2024, 025 Dental Oral Exam 04/03/2025 10/01/2024, 06/2024, 02/16/2021, Additional history exists Dental Prophylaxis 04/03/2025 10/01/2024, 1 , 02/09/2019, Additional history exists Dental X-Ray: Bitewings 09/26/2025 09/26/19, 02/16/2021, 02/09/2019, Additional history exists Tobacco Screening 11/27/2025 11/27/2024 Cervical Cancer Screening 12/24/2025 HPV/Cotest 12/24/2025 Pap Smear 12/24/2025 12/24/2020, 12/24/2020 Dental X-Ray: Full Mouth 01/03/2028 025, 12/03/2024, 09/25/2024, Additional history exists Lipid Panel 05/19/2028 05/19/2023, 05/20/2022 Colonoscopy 11/19/2030 11/19/2020, 10/20/2020 Colorectal Cancer Screening 11/19/2030 DTaP/Tdap/Td Vaccines (4 - Td or Tdap) 11/14/2033 11/15/2023, 04/25/2012, 12/30/2011 RSV Patients and Patients Aged 60 years or older (1 - 1-dose 75+ series) 10/05/2046 HIB Vaccines Aged Out No longer eligi ble based on patient's age to complete this topic HPV Vaccines Aged Out No longer eligi ble based on patient's age to complete this topic Hepatitis A Vaccines Aged Out No long er eligible based on patient's age to complete this topic IPV Vaccines Aged Out No longer eligi ble based on patient's age to complete this topic Meningococcal B Vaccine Aged Out No l onger eligible based on patient's age to complete this topic Meningococcal Vaccine Aged Out No aspen danyell eligible based on patient's age to complete this topic RSV under 20 months Aged Out No longe r eligible based on patient's age to complete this topic Rotavirus Vaccines Aged Out No longer eligible based on patient's age to complete this topic Procedures Procedure Name Priority Date/Time Associated Diagnosis Comments CASE PRESENTATION, DETAILED AND EXTENSIVE TREATMENT PLANNING Routine 01/01/2025 10:00 AM EDT PANORAMIC RADIOGRAPHIC IMAGE Routine 01/01/2025 10:00 AM EDT Full PROPHYLAXIS - ADULT Routine 10/01/2024 10:00 AM EDT PERIODIC ORAL EVALUATION - ESTABLISHED PATIENT Routine 10/01/2024 10:00 AM EDT INTRAORAL - COMPLETE SERIES OF RADIOGRAPHIC IMAGES Routine 09/25/2024 8:30 AM EDT LIPID PANEL, STANDARD Routine 05/19/2023 9:27 AM EST Leukopenia, unspecified type BI MAMMOGRAM SCREENING TOMOSYNTHESIS BILATERAL Routine 12/30/2022 10:24 AM EDT HM PAP/HPV Routine 12/24/2020 HM COLONOSCOPY Routine 11/19/2020 from Last 3 Months or Most Recently Relevant to Health Maintenance Results * (ABNORMAL) Lipid panel (05/19/2023 9:27 AM EST) Cholesterol, Total 196 (<200) MG/DL [facility] Triglyceride (mg/dL) in Serum/Plasma 71 (<150) MG/DL [facility] HDL Cholesterol 46 (>39) MG/DL [facility] LDL Cholesterol, Calculated 136(H) (0-130) MG/DL [facility] Non HDL Chol. (LDL+VLDL) 150 (<160) MG/DL [facility] Comment: Testing performed or reported by [facility], a Service of [facility], [address] [place] [address] Phoenix Sommer MD, Molder Shoulder Pad [facility]# [id number] Blood Venous blood specimen / Unknown 05/19/2023 9:27 AM EST 05/19/2023 9:31 AM EST Ruslan Pratt NP LAB BLOOD ORDERABLES Final R esult [facility] [address] [place] [address] * BI Mammogram Screening Tomosynthesis Bilateral (12/30/2022 10:24 AM EDT) Anatomical Region Laterality Modality Breast Bilateral Mammography Ruslan Pratt NP IMG BI PROCEDURES Final Resu lt * Hm Pap Smear (12/24/2020) HM Pap smear norrmal Historical Provider HEALTH MAINTENANCE Final Result * Colonoscopy (11/19/2020) Colonoscopy normal Historical Provider HEALTH MAINTENANCE Final Result from Last 3 Months or Most Recently Relevant to Health Maintenance Insurance [employer] C3 [employer] ST[place] ADULT DENTAL - [place] PARTIAL (MEDICAID) Care Teams Cement Finisher Helper Relationship Specialty Start Date End Date Ruslan Pratt NP [address] [place] [address] PCP - General Internal Medicine 03/25/22
--- OUTSIDE RECORDS SUMMARY | 2025-03-07 10:08 | XMS_ITS | Encounter Summary ---
Author Organization [employer] Address [address] [facility] [address] [place] [address] Care Team Providers Care Java Developer Name Role Phone Ruslan Pratt TITLE EXAMINER Primary Care Provider [phone] Reason for Visit * Reason Comments Med Refill Encounter Details Date Type Department Care Team (Late st Contact Info) Description 06/20/2024 Refill [facility] [address] [place] [address] Ruslan Pratt NP [address] [place] [address] Essential (primary) hypertension; Social anxiety disorder Social History Tobacco Use Types Packs/Day Years Used Date Smoking Tobacco: Never Smokeless Tobacco: Never Alcohol Use Standard Drinks/Week Comments Not Currently 0 (1 standard drink = 0.6 oz pur e alcohol) Depression Answer Date Recorded Patient Health Questionnaire-9 Score 13 11/15/2023 Patient Health Questionnaire-9 Score 13 11/15/2023 Last PHQ-9: Questionnaire Data Not on file 0 11/15/2023 Housing Stability Answer Date Recorded What is [...] Date Recorded Patient Health Questionnaire-2 Score 4 11/15/2023 Internet Access Answer Date Recorded Internet Access Q1 Yes 12/26/2023 Internet Access Q2 Not on file 12/26/2023 Comments No Sex and Gender Information Value Date Recorded Sex Assigned at Female 02/22/2022 10:18 AM EDT Legal Sex Female 10:18 AM EDT Gender Identity Female 02/22/2022 10:18 AM EDT Sexual Orientation Straight 11/04/2022 9: 26 PM EDT documented as of this encounter Miscellaneous Notes * Telephone Encounter - Elaine Caraballo MA - 06/20/2024 8:25 AM EST Both meds have 3 refills left documented in this encounter Plan of Treatment Upcoming Encounters Date Type Department Care Team (Late st Contact Info) Description 04/01/2025 9:30 AM EST Office Visit [place] [facility] [address] [place] [address] Kayla Howe 04/09/2025 9:30 AM EST Office Visit [place] [facility] MED[facility] [address] [place] [address] Ruslan Pratt NP [address] [place] [address] documented as of this encounter Visit Diagnoses Diagnosis Essential (primary) hypertension Unspecified essential hypertension Social anxiety disorder Social phobia documented in this encounter Additional Health Concerns Assessment Noted Time PHQ-9 Depression Total Score: 13 024 9:13 AM EDT documented as of this encounter Care Teams Java Developer Relationship Specialty Start Date End Date Ruslan Pratt NP [address] [place] [address] PCP - General Internal Medicine 03/25/22 documented as of this encounter
--- OUTSIDE RECORDS SUMMARY | 2025-03-07 10:08 | XMS_ITS | Encounter Summary ---
Author Organization [employer] Address 75 [facility] 7t [place] [address] Care Team Providers Care Bridal Gown Fitter Name Role Phone Ruslan Pratt PAYROLL CLERK Primary Care Provider [phone] Reason for Visit * Reason Comments Med Change Request Encounter Details Date Type Department Care Team (Late st Contact Info) Description 11/15/2023 Refill [facility] MEDICAL [address] [place] [address] Ruslan Pratt NP [address] [place] [address] Constipation, unspecified constipation type Social History Tobacco Use Types Packs/Day Years [...] Recorded Patient Health Questionnaire-2 Score 4 11/15/2023 Comments No Sex and Gender Information Value Date Recorded Sex Assigned at Female 02/22/2022 10:18 AM EDT Legal Sex Female 10:18 AM EDT Gender Identity Female 02/22/2022 10:18 AM EDT Sexual Orientation Straight 11/04/2022 9: 26 PM EDT documented as of this encounter Functional Status * Over the past 2 weeks, how often have you been bothered by any of the following problems? Question Answer Date of Assessment Author Little interest or pleasure in doing things More than half the days 11/15/2023 9:13 AM Julia Rhodes Feeling down, depressed, or hopeless More than half the days 11/15/2023 9:13 AM Julia Rhodes Patient Health Questionnaire-2 Score 4 11/15/2023 9:13 AM Juan Luis Rhodes * Question Answer Date of Assessment Author Trouble falling or staying asleep, or sleeping too much More than half the days 11/15/2023 9:13 AM Julia Rhodes Feeling tired or having little energy Nearly every day 11/15/2023 9:13 AM Julia Rhodes Poor appetite or overeating More than half the days 11/15/2023 9:13 AM Julia Rhodes Feeling bad about yourself - or that you are a failure or have let yourself or your family down Not at all 11/15/2023 9:13 AM Julia Rhodes Trouble concentrating on things, such as reading the newspaper or watching television Several days 11/15/2023 9:13 AM Julia Rhodes Moving or speaking so slowly that other people could have noticed? Or the opposite - being so fidgety or restless that you have been moving around a lot more than usual. Several days 11/15/2023 9:13 AM Julia Rhodes Thoughts that you would be better off or hurting yourself in some way Not at all 11/15/2023 9:13 AM Julia Rhodes Patient Health Questionnaire-9 Score 13 11/15/2023 9:13 AM Juan Luis Rhodes * How difficult have these problems made it for you to do your work, take care of things at home, or get along with other people? Answer Date of Assessment Author Extremely difficult 11/15/2023 9:13 AM Julia Biswas documented as of this encounter Plan of Treatment Upcoming Encounters Date Type Department Care Team (Late st Contact Info) Description 04/01/2025 9:30 AM EST Office Visit [place] [facility] Dental [address] [place] [address] Kayla Howe 04/09/2025 9:30 AM EST Office Visit [facility] MEDICAL [address] [place] [address] Ruslan Pratt NP [address] [place] [address] documented as of this encounter Visit Diagnoses Diagnosis Constipation, unspecified constipation type documented in this encounter Additional Health Concerns Assessment Noted Time PHQ-9 Depression Total Score: 13 024 9:13 AM EDT documented as of this encounter Care Teams Bridal Gown Fitter Relationship Specialty Start Date End Date Ruslan Pratt NP [address] [place] [address] PCP - General Internal Medicine 03/25/22 documented as of this encounter
--- OUTSIDE RECORDS SUMMARY | 2025-03-07 10:08 | XMS_ITS | Encounter Summary ---
Author Organization [employer] Address 75 [facility] 7t [place] [address] Care Team Providers Care Legal Intern Name Role Phone Ruslan Pratt NP Primary Care Provider Encounter Details Date Type Department Care Team (Late st Contact Info) Description 11/16/2023 Orders Only [facility] [address] [place] [address] Ruslan Pratt NP [address] [place] [address] Social History Tobacco Use Types Packs/Day Years [...] PM EDT documented as of this encounter Plan of Treatment Upcoming Encounters Date Type Department Care Team (Late st Contact Info) Description 04/01/2025 9:30 AM EST Office Visit [facility] Dental [address] [place] [address] Kayla Howe 04/09/2025 9:30 AM EST Office Visit [facility] MEDICAL [address] [place] [address] Ruslan Pratt NP [address] [place] [address] documented as of this encounter Procedures Procedure Name Priority Date/Time Associated Diagnosis Comments BI MAMMOGRAM SCREENING TOMOSYNTHESIS BILATERAL Routine 12/30/2022 10:24 AM EDT documented in this encounter Results * BI Mammogram Screening Tomosynthesis Bilateral (12/30/2022 10:24 AM EDT) Anatomical Region Laterality Modality Breast Bilateral Mammography Ruslan Pratt NP IMG BI PROCEDURES Final Resu lt documented in this encounter Visit Diagnoses Not on filedocumented in this encounter Additional Health Concerns Assessment Noted Time PHQ-9 Depression Total Score: 13 024 9:13 AM EDT documented as of this encounter Care Teams Legal Intern Relationship Specialty Start Date End Date Ruslan Pratt NP [address] [place] [address] PCP - General Internal Medicine 03/25/22 documented as of this encounter
--- OUTSIDE RECORDS SUMMARY | 2025-03-07 10:08 | XMS_ITS | Encounter Summary ---
Author Organization [employer] Address [address] [place] [address] Care Team Providers Care Test Desk Operator Name Role Phone Ruslan Pratt NP Primary Care Provider [phone] Encounter Details Date Type Department Care Team (Latest Contact Info) Description 08/08/2018 Abstract [facility] CONVERSIONS Dental, Provider, DDS Social History Tobacco Use Types Packs/Day Years Used Date Smoking Tobacco: Never Assessed Comments Unknown Sex and Gender Information Value Date Recorded Sex Assigned at Female 02/22/2022 10:18 AM EDT Legal Sex Female 10:18 AM EDT Gender Identity Female 02/22/2022 10:18 AM EDT Sexual Orientation Straight 11/04/2022 9: 26 PM EDT documented as of this encounter Plan of Treatment Upcoming Encounters Date Type Department Care Team ( st Contact Info) Description 04/01/2025 9:30 AM EST Office Visit [facility] Dental [address] [place] [address] Kayla Howe 04/09/2025 9:30 AM EST Office Visit [facility] MEDICAL [address] [place] [address] Ruslan Pratt NP [address] [place] [address] documented as of this encounter Visit Diagnoses Not on filedocumented in this encounter Care Teams Test Desk Operator Relationship Specialty Start Date End Date Ruslan Pratt NP [address] [place] [address] PCP - General Internal Medicine 03/25/22 documented as of this encounter
--- OUTSIDE RECORDS SUMMARY | 2025-03-07 10:08 | XMS_ITS | Encounter Summary ---
Author Organization [employer] [facility] Address [address] [place] [address] Care Team Providers Care Commercial Photographer Name Role Phone Ruslan Pratt NP Primary Care Provider Encounter Details Date Type Department Care Team (Latest Contact Info) Description 02/16/2021 Abstract [facility] CONVERSIONS Dental, Provider, DDS Social History Tobacco [...] Description 04/01/2025 9:30 AM EST Office Visit [facility] Dental [address] [place] [address] Kayla Howe 04/09/2025 9:30 AM EST Office Visit [facility] MEDICAL [address] [place] [address] Ruslan Pratt NP [address] [place] [address] documented as of this encounter Visit Diagnoses Not on filedocumented in this encounter Care Teams Commercial Photographer Relationship Specialty Start Date End Date Ruslan Pratt NP [address] [place] [address] PCP - General Internal Medicine 03/25/22 documented as of this encounter
== END 2025-03-07 10:03 | disposition home or self-care (01) ==
LOC: HO.HWS 09:10
PROVIDERS: PCP Nurse Practitioner Community Health; Visit Provider Advanced Practice Midwife
DX: Z01.419 Encounter for gynecological examination (general) (routine) without abnormal findings (principal); R10.20 Pelvic and perineal pain unspecified side
CPT/HCPCS: 99396

== ENCOUNTER 2025-03-23 07:37 | Outpatient (REF) | payer MEDICAID, SELFPAY ==
--- NOTE | ~2025-03-23 | US_ITS ---
EXAMINATION: US PELVIS CLINICAL INFORMATION: R 10.2. Pelvic and perineal pain. LMP: One month ago.. COMPARISON: None available. TECHNIQUE: Ultrasound of the pelvis is performed using both transabdominal and transvaginal transducers along with Doppler. Transvaginal imaging is performed due to inadequate visualization transabdominally. FINDINGS: Uterus: The uterus is in retroversion and measures 8 x 4 x 5 cm. Volume: 65 cc. The double wall endometrial thickness is 5 mm. There is a 1.8 cm heterogeneous mixed echotexture soft tissue lesion in the left side of the body fundus junction adjacent to the endometrium stripe. There is a 1.2 cm heterogeneous mixed echotexture soft tissue lesion in the left body of the uterus of the myometrium. The cervix is normal. Adnexa: The ovaries are identified with symmetric flow distribution on color Doppler interrogation. There are few scattered follicles in the right ovary. There is a 2.9 cm anechoic lesion in the right ovary without septations or nodular component. Left ovary demonstrates scattered follicles. Right ovary measures 5 x 3 x 4 cm. Volume: 34 cc. Left ovary measures 3 x 2 x 3 cm. Volume: 7 cc. No free fluid in the cul-de-sac. US/US pelvic and transvaginal IMPRESSION: 2.9 cm simple cyst, right ovary. Uterine fibroids, largest 1.8 cm. No ovarian torsion. Electronically signed by: Ahmet Hoff MD 03/25/2025 08:26 AM [facility]
--- OUTSIDE RECORDS SUMMARY | 2025-03-23 07:39 | XMS_ITS | Clinical Summary ---
Author Organization [employer] Address 75 [facility] 7 [place] [address] Care Team Providers Care Manager Of Network Name Role Phone Ruslan Pratt NP Primary Care Provider Allergies Active Allergy Reactions Criticality Noted Date Comments Sulfa Antibiotics Hives 04/22/2022 Medications * This document contains information received from the source organization and may not represent a complete record from that organization. Multiple Vitamins-Minerals (Multi Complete) capsule Take 1 tablet by mouth 1 (one) time each day. Active SM Fiber Laxative 500 MG tabletIndications :Constipation, unspecified constipation type Take 2 tablets by mouth Once per day. 180 tablet 3 5 Active amLODIPine (Norvasc) 2.5 MG tabletIndications :Essential (primary) hypertension Take 1 tablet (2.5 mg) by mouth Once per day. 90 tablet 3 5 Active cholecalciferol (Vitamin D-3) 50 MCG (2000 UT) tablet Take 2,000 Units by mouth Once per day. 90 tablet 3 5 Active lisinopril 40 MG tabletIndications :Essential (primary) hypertension Take 1 tablet (40 mg) by mouth Once per day. 90 tablet 3 5 Active propranolol LA (Inderal LA) 160 MG 24 hr capsuleIndication s:Social anxiety disorder Take 1 capsule (160 mg) by mouth Once per day. Do not crush, chew, or split. 90 capsule 3 5 Active Cortney 0.35 MG tabletIndications :Family planning TAKE 1 TABLET BY MOUTH EVERY DAY IN THE MORNING 84 tablet 3 5 Active GaviLAX 17 GM/SCOOP powderIndications :Constipation, unspecified constipation type TAKE 17 GRAMS BY MOUTH ONCE PER DAY. 510 g 3 5 Active cetirizine (ZyrTEC) 10 MG tabletIndications :Non-seasonal allergic rhinitis, unspecified trigger TAKE 1 TABLET BY MOUTH EVERY DAY 90 tablet 1 5 Active oxybutynin (Ditropan) 5 MG tabletIndications :Overactive bladder TAKE 1 TABLET BY MOUTH TWICE DAILY 180 tablet 1 5 Active clotrimazole (Lotrimin) 1 % creamIndications: Tinea pedis of right foot Apply topically 2 times daily. 30 g 1 5 Active Acetaminophen Extra Strength 500 MG tablet TAKE 1 TABLET BY MOUTH EVERY 4 TO 6 HOURS NEEDED. MAX 4000MG/DAY 5 Active Restasis 0.05 % ophthalmic emulsion administer 1 drop into both eyes 2 times daily. 5 Active amitriptyline (Elavil) 25 MG tabletIndications :Migraine without status migrainosus, not intractable, unspecified migraine type Take 1 tablet (25 mg) by mouth at bedtime. 90 tablet 5 01/02/20 26 Active cloNIDine (Catapres) 0.1 MG tabletIndications :Social anxiety disorder TAKE 1 TABLET BY MOUTH EVERY DAY IN THE MORNING 30 tablet 5 Active Active Problems Problem Noted Date Diagnosed Date [...] Encounters Date Type Department Care Team Description 03/12/2025 Telephone [place] [facility] MEDICAL [address] [place] [address] Ruslan Pratt NP 02/16/2025 Refill [facility] MEDICAL [address] [place] [address] Ruslan Pratt NP Social anxiety disorder 01/01/2025 10:30 AM EDT Office Visit [facility] [address] [place] [address] Ruslan Pratt NP Essential (primary) hypertension (Primary Dx); Migraine without status migrainosus, not intractable, unspecified migraine type; Overactive bladder; Tinea pedis of right foot; Constipation, unspecified constipation type; Encounter for surveillance of contraceptive pills; Encounter for screening mammogram for malignant neoplasm of breast 01/01/2025 10:00 AM EDT Office Visit [facility] Dental [address] [place] [address] Le Lynn LLD from Last 3 Months Immunizations Immunization Administration [...] Description 04/01/2025 9:30 AM EST Office Visit [facility] Dental [address] [place] [address] Kayla Howe 04/09/2025 9:30 AM EST Office Visit [facility] MEDICAL [address] [place] [address] Ruslan Pratt NP [address] [place] [address] Health Maintenance Due Date Last Done Comments [...] Additional history exists Dental X-Ray: [facility] 09/26/2025 09/26/19 25, 02/16/2021, 02/09/2019, Additional history exists Tobacco Screening [...] Procedure Name Priority Date/Time Associated Diagnosis Comments AMB REFERRAL TO OB-AUTOMATIC GLUING MACHINE OPERATOR Routine 03/07/2025 Encounter for annual physical examination excluding gynecological examination in a patient older than 17 years CASE PRESENTATION, DETAILED AND EXTENSIVE TREATMENT PLANNING [...] Recently Relevant to Health Maintenance Results * Referral to Obstetrics / Gynecology (03/07/2025) Ruslan Pratt NP OUTPATIENT REFERRAL ORDERABL ES Final Result * (ABNORMAL) Lipid panel (05/19/2023 9:27 AM EST) Cholesterol, Total 196 (<200) MG/DL [facility] Triglyceride (mg/dL) in Serum/Plasma 71 (<150) MG/DL [facility] HDL Cholesterol 46 (>39) MG/DL [facility] LDL Cholesterol, Calculated 136(H) (0-130) MG/DL [facility] Non HDL Chol. (LDL+VLDL) 150 (<160) MG/DL [facility] Comment: Testing performed or reported by [facility], a Service of [facility], [address] [place] [address] Phoenix Sommer MD, Resaw Carriage Operator [facility]# [id number] Blood Venous blood specimen / Unknown 05/19/2023 9:27 AM EST 05/19/2023 9:31 AM EST Ruslan Pratt NP LAB BLOOD ORDERABLES Final R esult [facility] [address] [place] [id number] * BI Mammogram Screening Tomosynthesis Bilateral (12/30/2022 10:24 AM EDT) Anatomical Region Laterality Modality Breast Bilateral Mammography Ruslan Pratt EMERGENCY CREW SUPERVISOR IMG BI PROCEDURES Final Resu lt * Pap Smear (12/24/2020) Pap smear norrmal Historical Provider HEALTH MAINTENANCE Final Result * Colonoscopy (11/19/2020) Colonoscopy normal Historical Provider HEALTH MAINTENANCE Final Result from Last 3 Months or Most Recently Relevant to Health Maintenance Insurance [employer] Member Subscriber Plan / Payer (Ef fective 2023-Present) Name:Renetta Akbar Relation to Subscriber:Self Name:Renetta Akbar Payer ID:Not on file Group ID:Not on file Type:Medicaid Address: [address] [employer] [place] ST[place] ADULT DENTAL - [facility] PARTIAL (MEDICAID) Care Teams Manager Of Network Relationship Specialty Start Date End Date Ruslan Pratt NP [address] [place] [id number] PCP - General Internal Medicine 03/25/22
--- OUTSIDE RECORDS SUMMARY | 2025-03-23 07:39 | XMS_ITS | Encounter Summary ---
Author Organization [employer] Address 75 [facility] 7t [place] [address] Care Team Providers Care Marketing Co Op Name Role Phone Ruslan Pratt NEUROLOGY SPECIALIST Primary Care Provider [phone] Reason for Visit * Reason Comments Med Change Request Encounter Details Date Type Department Care Team (Late st Contact Info) Description 11/15/2023 Refill [facility] MEDICAL [address] [place] [address] Ruslan Prtat NP [address] [place] [address] Constipation, unspecified constipation type Social History Tobacco [...] Description 04/01/2025 9:30 AM EST Office Visit [place] [facility] Dental [address] [place] [address] Kayla Howe 04/09/2025 9:30 AM EST [facility] [address] [place] [address] Ruslan Pratt NP [address] [place] [address] documented as of this encounter Visit Diagnoses Diagnosis Constipation, unspecified constipation type documented in this encounter Additional Health Concerns Assessment Noted Time PHQ-9 Depression Total Score: 13 024 9:13 AM EDT documented as of this encounter Care Teams Marketing Co Op Relationship Specialty Start Date End Date Ruslan Pratt NP [address] [place] [address] PCP - General Internal Medicine 03/25/22 documented as of this encounter
--- OUTSIDE RECORDS SUMMARY | 2025-03-23 07:39 | XMS_ITS | Encounter Summary ---
Author Organization [employer] Address 75 [facility] 7t [place] [address] Care Team Providers Care Digital Marketing Lead Name Role Phone Ruslan Pratt VICE PRESIDENT DIGITAL STRATEGIST Primary Care Provider [phone] Reason for Visit * Reason Comments Med Refill Encounter Details Date Type Department Care Team (Late st Contact Info) Description 06/20/2024 Refill [facility] MEDICAL [address] [place] [address] Ruslan Pratt NP [address] [place] [address] Essential (primary) hypertension; Social anxiety disorder Social [...] Description 04/01/2025 9:30 AM EST Office Visit [place] [facility] Dental [address] [place] [address] Kayla Howe 04/09/2025 9:30 AM EST Office Visit [place] [facility] MEDICAL [address] [place] [address] Ruslan Pratt NP [address] [place] [address] documented as of this encounter Visit Diagnoses Diagnosis Essential (primary) hypertension Unspecified essential hypertension Social anxiety disorder Social phobia documented in this encounter Additional Health Concerns Assessment Noted Time PHQ-9 Depression Total Score: 13 024 9:13 AM EDT documented as of this encounter Care Teams Digital Marketing Lead Relationship Specialty Start Date End Date Ruslan Pratt NP [address] [place] [address] PCP - General Internal Medicine 03/25/22 documented as of this encounter
--- OUTSIDE RECORDS SUMMARY | 2025-03-23 07:39 | XMS_ITS | Encounter Summary ---
Author Organization [employer] Address [address] [place] [address] Care Team Providers Care Sql Developer Name Role Phone Ruslan Pratt NP Primary Care Provider Encounter Details Date Type Department Care Team (Latest Contact Info) Description 08/08/2018 Abstract [facility] CONVERSIONS Dental, Provider, DDS Social History Tobacco [...] Description 04/01/2025 9:30 AM EST Office Visit [facility] Dental [address] [place] [address] Kayla Howe 04/09/2025 9:30 AM EST Office Visit [facility] MEDICAL [address] [place] [address] Ruslan Pratt NP [address] [place] [address] documented as of this encounter Visit Diagnoses Not on filedocumented in this encounter Care Teams Sql Developer Relationship Specialty Start Date End Date Ruslan Pratt NP [address] [place] [address] PCP - General Internal Medicine 03/25/22 documented as of this encounter
--- OUTSIDE RECORDS SUMMARY | 2025-03-23 07:39 | XMS_ITS | Encounter Summary ---
Author Organization [employer] [facility] Address [address] [place] [address] Care Team Providers Care In Tube Conversion Technician Name Role Phone Ruslan Pratt NP Primary Care Provider Encounter Details Date Type Department Care Team (Latest Contact Info) Description 02/16/2021 Abstract [facility] CONVERSIONS Dental, Provider, DDS Social History Tobacco [...] Description 04/01/2025 9:30 AM EST Office Visit [facility] Dental [address] [place] [address] Kayla Howe 04/09/2025 9:30 AM EST Office Visit [facility] MEDICAL [address] [place] [address] Ruslan Pratt NP [address] [place] [address] documented as of this encounter Visit Diagnoses Not on filedocumented in this encounter Care Teams In Tube Conversion Technician Relationship Specialty Start Date End Date Ruslan Pratt NP [address] [place] [address] PCP - General Internal Medicine 03/25/22 documented as of this encounter
--- OUTSIDE RECORDS SUMMARY | 2025-03-23 07:39 | XMS_ITS | Encounter Summary ---
Author Organization [employer] Address 75 [facility] 7t [place] [address] Care Team Providers Care Crime Investigator Special Agent Name Role Phone Ruslan Pratt NP Primary Care Provider [phone] Encounter Details Date Type Department Care Team (Late st Contact Info) Description 11/16/2023 Orders Only [facility] [address] [place] [address] Ruslan Pratt NP [address] [place] [address] Social History Tobacco Use Types Packs/Day Years [...] Description 04/01/2025 9:30 AM EST Office Visit [facility] Dental [address] [place] [address] Kayla Howe 04/09/2025 9:30 AM EST Office Visit [facility] MEDICAL [address] [place] [address] Ruslan Pratt NP [address] [place] [address] documented as of this encounter Procedures Procedure [...] documented as of this encounter Care Teams Crime Investigator Special Agent Relationship Specialty Start Date End Date Ruslan Pratt NP [address] [place] [address] PCP - General Internal Medicine 03/25/22 documented as of this encounter
== END 2025-03-23 07:38 | disposition home or self-care (01) ==
LOC: HO.US 07:37
PROVIDERS: Visit Provider Advanced Practice Midwife
DX: R10.20 Pelvic and perineal pain unspecified side (principal)
CPT/HCPCS: 76830; 76856

== ENCOUNTER → 2025-03-23 07:39 | Outpatient (BNV) | payer MEDICAID, SELFPAY | PROVIDERS: Visit Provider Radiology Diagnostic Radiology | DX: D25.9 Leiomyoma of uterus, unspecified (principal); N83.201 Unspecified ovarian cyst, right side | CPT/HCPCS: 76830; 76856 ==